=== PATIENT | female | born 1995 | race Caucasian/White ===

== ENCOUNTER 2018-10-19 11:25 | Emergency (ER) | payer OTHER, SELFPAY ==
[2018-10-19 11:26] VITALS: BP 126/66; PULSE 107; RESP 17; TEMP 37.2; O2SAT 98; BMI 28.1
--- NOTE | 2018-10-19 12:15 | RAD_ITS ---
STUDY: X-RAY CHEST REASON FOR EXAM: Female, 23 years old. Cough TECHNIQUE: Frontal and lateral views COMPARISON: None. FINDINGS: The lungs are clear and expanded. There is no demonstrated pleural abnormality. Normal size heart. Normal mediastinum and monique. Normal visualized pulmonary arteries. Normal visualized aortic arch and descending thoracic aorta. Normal visualized thoracic spine. Normal visualized ribs, clavicles, and shoulders. There is no demonstrated abnormality of the visualized soft tissue structures of the upper abdomen. RAD/Chest PA and Lateral IMPRESSION: Normal x-ray examination of the chest. Electronically Signed: Franc Gongora DO at 12:55 EDT Tel [phone], Service support ,
[2018-10-19] MEDS: Fluconazole 100 MG Tablet PO (12:24)
--- NOTE | 2018-10-19 12:40 | ED.VISSUMM ---
- ER Visit Summary Date of Service: 10/19/18 Chief Complaint: [Fever and cough] History of Present Illness: The patient is a 23 F [presents the emergency department complaint of fever x4 days. Patient also had a cough is productive with some yellow sputum. Patient complains of chills and sweats. Patient states that she is been using ibuprofen and Tylenol but temperature will still spike to 105 at times. Patient denies any shortness of breath. Patient was seen 4 days ago at [facility] and was started on a Z-Lauro. Patient also concerned that she may be getting a yeast infection related to the antibiotic. Patient denies any sore throat or ear pain. She denies vomiting or diarrhea. She denies any abdominal pain. She is been eating and drinking normally.] Physical Examination: [HEENT-PERRLA, EOMI. Cranial nerves II through XII grossly intact. TMs clear. Mucous membranes moist. No adenopathy. No pharyngeal erythema. Uvula in the midline. No trismus. Cardiovascular-regular and mildly tachycardic. No murmurs auscultated. Lungs-clear to auscultation, chest wall stable without crepitus or subcu emphysema Abdomen-normoactive bowel sounds, soft, nontender, no rebound or rigidity, no peritoneal signs. Extremities-intact ?4, normal range of motion, normal pulses, atraumatic] Test Results: [Chest x-ray obtained arm was read by radiology as normal.] Emergency Department Course and Treatment: [Patient was given 1 dose of Diflucan 100 mg p.o.] Treatment Plan: [Patient has normal vital signs and otherwise looks well. She does not appear toxic. Patient to continue with her Zithromax until it is finished although I did explain that symptoms may be related to a viral etiology in which case antibiotics would not help and illness would have to just take its course. Patient will be referred to primary care physician operations support representative for no doc for follow-up within the next 3 to 5 days. Patient advised to return if increasing shortness of breath or conditions worsen anyway.] Disposition: [Discharged home in stable condition] Impression: [Bronchitis Vaginal yeast infection-by history] This note was generated with [employer] software. It may contain incorrect words, spelling, and punctuation that were not noted in review of the chart prior to signing ED Disposition - Plan for ED Patient: Referrals: Care Physician,No Primary [Primary Care Provider] -
--- NOTE | 2018-10-19 13:00 | ED.DEP ---
ED Disposition - Plan for ED Patient: Instructions: BRONCHITIS, Antiobiotic Treatment (Adult), Vaginal Infection: Yeast (Candidiasis) Prescriptions: Fluconazole [Diflucan] 150 mg PO X1 #1 tab Prescription Printed Referrals: Care Physician,No Primary [Primary Care Provider] - Jesus Maldonado MD [STAFF PHYSICIAN] - 3-5 Days
[2018-10-19 13:08] VITALS: BP 120/73; PULSE 94; RESP 18
== END 2018-10-19 13:09 | disposition home or self-care (01) ==
LOC: ED 12:29
PROVIDERS: Emergency Provider Emergency Medicine
DX: J40 Bronchitis, not specified as acute or chronic (principal)
CPT/HCPCS: 71046; 99283